=== PATIENT | female | born 1955 | race Two or more races ===

== ENCOUNTER 2021-12-23 22:45 | Emergency (ER) | payer OTHER ==
[~2021-12-23] VITALS: Ht 160 cm; Wt 97.1 kg
[~2021-12-23 22:45] MED LIST: DIOVAN HCT 80-11 TAB; VYTORIN 10-40 M1 TAB
[2021-12-23] MEDS ORDERED: CIPRO500 MG PO (23:57)
== END 2021-12-24 00:13 | disposition home or self-care (01) ==
LOC: ER 22:45
DX: S61.421A Laceration with foreign body of right hand, initial encounter (principal); W25.XXXA Contact with sharp glass, initial encounter; Y93.G1 Activity, food preparation and clean up; Y92.010 Kitchen of single-family (private) house as the place of occurrence of the external cause; Z88.0 Allergy status to penicillin

== ENCOUNTER 2021-12-31 11:50 | Emergency (ER) | payer OTHER ==
[~2021-12-31] VITALS: Ht 162.6 cm; Wt 70.8 kg
[~2021-12-31 11:50] MED LIST changes: +CIPRO500 MG PO
== END 2021-12-31 12:33 | disposition home or self-care (01) ==
LOC: ER 11:50
DX: L53.8 Other specified erythematous conditions (principal); Z88.0 Allergy status to penicillin

== ENCOUNTER 2022-01-05 14:46 | Emergency (ER) | payer OTHER ==
[~2022-01-05] VITALS: Ht 160 cm; Wt 98.4 kg
== END 2022-01-05 16:45 | disposition home or self-care (01) ==
LOC: ER 14:46
DX: Z48.02 Encounter for removal of sutures (principal)

== ENCOUNTER 2022-12-23 10:42 | Outpatient (CLI) | payer OTHER | END 2022-12-23 10:44 | disposition home or self-care (01) | LOC: SONOGRAMA 10:42 | PROVIDERS: ATTEND Pathology Anatomic Pathology & Clinical Pathology | DX: D34 Benign neoplasm of thyroid gland (principal); E04.9 Nontoxic goiter, unspecified ==